=== PATIENT | male | born 1930 | race Caucasian/White ===

== ENCOUNTER 2017-10-17 23:43 | Inpatient (IN) | payer OTHER ==
[~2017-10-17] VITALS: Ht 172.7 cm; Wt 83.5 kg
[2017-10-18 00:05] LABS: BASOPHIL (%) 0.4 % (0-1); BASOPHIL COUNT 0.1 K/uL (0-0.1); EOSINOPHIL (%) 1.9 % (0-5); EOSINOPHIL COUNT 0.2 K/uL (0-0.3); HEMATOCRIT 34.9 % (38.0-50.0); HEMOGLOBIN 12.6 G/DL (12.5-16.6); IMMATURE GRANULOCYTE (%) 3.7 % (0.0-0.7); LYMPHOCYTE (%) 6.5 % (15-42); LYMPHOCYTE COUNT 0.8 K/uL (1.0-2.8); MCH 32.7 PG (29.0-34.0); MCHC 36.1 G/DL (30.0-36.0); MCV 90.6 FL (86-99); MONOCYTE (%) 9.7 % (3-12); MONOCYTE COUNT 1.1 K/uL (0-0.8); NEUTROPHIL (%) 77.8 % (45-76); NEUTROPHIL COUNT 9.1 K/uL (1.8-6.4); PLATELET COUNT 368 K/uL (156-360); RBC DIS.WIDTH-CV 13.4 % (11.8-14.6); RBC DIS.WIDTH-SD 44.7 % (39-53); RED BLOOD COUNT 3.85 M/uL (4.00-5.50); WHITE BLOOD COUNT 11.7 K/uL (4.1-10.2)
[2017-10-18 00:18] LABS: ALBUMIN 3.1 g/dL (3.2-4.8); CHLORIDE 91 mEq/L (99-109); POTASSIUM 4.9 mEq/L (3.7-5.4); SODIUM 125 mEq/L (136-147)
[2017-10-18 00:21] LABS: GLUCOSE 124 mg/dL (70-99); TOTAL PROTEIN 6.1 g/dL (6.4-8.3)
[2017-10-18 00:22] LABS: TOTAL BILIRUBIN 0.6 mg/dL (0.0-1.0)
[2017-10-18 00:24] LABS: ALKALINE PHOSPHATASE 63 IU/L (3-129); CREATININE 0.8 mg/dL (0.6-1.3); GFR ESTIMATE (CALCULATED) > 59 mL/min/ (58.99-99999)
[2017-10-18 00:25] LABS: UREA NITROGEN (BUN) 17 mg/dL (9-23)
[2017-10-18 00:26] LABS: AST (GOT) 21 IU/L (2-34)
[2017-10-18 00:27] LABS: ALT (GPT) 22 IU/L (3-49)
[2017-10-18 00:33] LABS: TROP-I INTERPRETATION NEGATIVE; TROPONIN-I < 0.01 ng/mL (0.0-0.30)
[2017-10-18] MEDS ORDERED: NORVASC10 MG PO (01:24)
[2017-10-18] MEDS ORDERED: PROSCAR5 MG PO (01:25)
[2017-10-18] MEDS ORDERED: LO-DOSE ASPIRIN81 M2 PO (01:25)
[2017-10-18] MEDS ORDERED: SENNA PLUS TAB1 EACH PO (01:26)
[2017-10-18] MEDS ORDERED: HYTRIN5 MG PO (01:27)
[2017-10-18] MEDS ORDERED: SODIUM CHLORIDE1 G1 PO (01:28)
[2017-10-18] MEDS ORDERED: TYLENOL REGULA325 MG PO (01:29)
[2017-10-18] MEDS ORDERED: ARTIFICIAL TEAR1510 BOTH EYES (01:30)
[2017-10-18] MEDS ORDERED: DULCOLAX10 MG PR (01:31)
[2017-10-18] MEDS ORDERED: MILK OF MAGN PO (01:32)
[2017-10-18] MEDS ORDERED: MIRALAX17 GM PO (01:34)
[2017-10-18 03:48] LABS: APPEARANCE CLEAR ((CLEAR)); BILIRUBIN NEGATIVE; BLOOD LARGE; COLOR YELLOW ((YELLOW)); GLUCOSE (STRIP) NEGATIVE; KETONES NEGATIVE; LEUKOCYTES MODERATE; NITRITE NEGATIVE; PROTEIN (STRIP) NEGATIVE; SPECIFIC GRAVITY 1.011 (1.000-1.030); UROBILINOGEN 0.2 MG/DL (0.2-1.0)
[2017-10-18 03:53] LABS: BACTERIA RARE /HPF; EPITHELIAL CELLS NONE SEEN /HPF; MUCUS NONE SEEN /LPF; RED BLOOD CELLS 20-30 /HPF (0-5); UCUL ADDED? YES; WHITE BLOOD CELLS 30-40 /HPF (0-5)
[2017-10-18 04:45] VITALS: BP 145/69
[2017-10-18 07:20] VITALS: BP 148/71
[2017-10-18 11:29] VITALS: BP 118/57
[2017-10-18 15:16] VITALS: BP 119/88
[2017-10-18 19:56] VITALS: BP 145/65
[2017-10-19 00:10] VITALS: BP 155/72
[2017-10-19 03:57] VITALS: BP 149/77
[2017-10-19 07:43] VITALS: BP 158/72
[2017-10-19 08:13] LABS: HEMATOCRIT 36.4 % (38.0-50.0); HEMOGLOBIN 12.5 G/DL (12.5-16.6); MCH 32.2 PG (29.0-34.0); MCHC 34.3 G/DL (30.0-36.0); MCV 93.8 FL (86-99); PLATELET COUNT 385 K/uL (156-360); RBC DIS.WIDTH-CV 13.9 % (11.8-14.6); RBC DIS.WIDTH-SD 48.4 % (39-53); RED BLOOD COUNT 3.88 M/uL (4.00-5.50)
[2017-10-19 08:37] LABS: CHLORIDE 93 MEQ/L (99-109); CREATININE 0.5 MG/DL (0.6-1.3); GFR ESTIMATE (CALCULATED) > 59 mL/min/ (58.99-99999); GLUCOSE 112 mg/dL (70-99); POTASSIUM 4.8 MEQ/L (3.7-5.4); SODIUM 128 MEQ/L (136-147); UREA NITROGEN (BUN) 13 mg/dL (9-23)
[2017-10-19 12:10] VITALS: BP 142/75
[2017-10-19 16:13] VITALS: BP 164/77
[2017-10-19 19:21] VITALS: BP 149/79
[2017-10-20 00:03] VITALS: BP 143/69
[2017-10-20 03:45] VITALS: BP 140/76
[2017-10-20 06:05] LABS: HEMATOCRIT 34.9 % (38.0-50.0); MCHC 34.4 G/DL (30.0-36.0); MCV 93.1 FL (86-99); PLATELET COUNT 371 K/uL (156-360); RBC DIS.WIDTH-CV 13.7 % (11.8-14.6); RBC DIS.WIDTH-SD 46.8 % (39-53); RED BLOOD COUNT 3.75 M/uL (4.00-5.50); WHITE BLOOD COUNT 8.2 K/uL (4.1-10.2)
[2017-10-20 06:26] LABS: CHLORIDE 90 MEQ/L (99-109); CREATININE 0.5 MG/DL (0.6-1.3); GFR ESTIMATE (CALCULATED) > 59 mL/min/ (58.99-99999); GLUCOSE 102 mg/dL (70-99); POTASSIUM 4.9 MEQ/L (3.7-5.4); SODIUM 126 MEQ/L (136-147); UREA NITROGEN (BUN) 13 mg/dL (9-23)
[2017-10-20 07:34] VITALS: BP 134/74
[2017-10-20] MEDS ORDERED: LEVOFLOXACIN750 MG PO (09:22)
[2017-10-20 11:34] VITALS: BP 117/72
[2017-10-20 15:30] VITALS: BP 130/69
== END 2017-10-20 18:21 | DRG 194 ==
LOC: EME 23:43 → 5SOUTH 10-18 03:22 → EDOF 10-18 03:22 → ENRESERV 10-18 03:24 → 5SOUTH 10-18 04:27
PROVIDERS: Emergency Medicine; Hospitalist
DX: J18.9 Pneumonia, unspecified organism (principal); E87.1 Hypo-osmolality and hyponatremia; I48.2 Chronic atrial fibrillation; R09.02 Hypoxemia; N40.0 Benign prostatic hyperplasia without lower urinary tract symptoms; I10 Essential (primary) hypertension; R29.6 Repeated falls; Y95 Nosocomial condition; Z66 Do not resuscitate; Z91.81 History of falling; Z79.82 Long term (current) use of aspirin; Z87.891 Personal history of nicotine dependence
CPT/HCPCS: 70450; 71045; 71046; 72170; 73564; 80048; 80053; 80202; 81003; 83605; 83930; 84484; 85025 91; 85027; 87040; 87086; 87449; 93005; 94799; 97530 GO; 99281; 99284; J0692; J1644; J3370